=== PATIENT | male | born 1955 | race Caucasian/White ===

== ENCOUNTER → 2017-02-14 | Day surgery (SDC) | payer OTHER ==
[~2017-02-14] MED LIST: ACTOS30 MG PO; ASPIR-TRIN325 MG PO; PERCOCET; VASERETIC 10-251 TAB PO
--- NOTE | ~2017-02-14 | OR ---
Unit #: [id number] #: [id number] Patient: HELLEN MANZANARES [id number] [address] [place], [place] [address] [id number] MR#: [id number] NAME: HELLEN MANZANARES. ROOM: Date of Procedure: 02/14/2017 Admission Date: 02/14/2017 Surgeon: Cruz Ramey M.D. : 1955 Attending Physician: Cruz Ramey M.D. Primary Care Physician: Jayson Marley D.O. OPERATIVE REPORT PRIMARY CARE PHYSICIAN Jayson Marley D.O. PREOPERATIVE DIAGNOSES The patient has presented for surveillance colonoscopy. He has family history of colon cancer. In addition, he also has presence of blood in the stool as well as iron-deficiency anemia, anemia of chronic gastrointestinal blood loss, and needs an upper gastrointestinal endoscopy as well. PROCEDURES PERFORMED Push enteroscopy and biopsy as well as colonoscopy up to terminal ileum. POSTOPERATIVE DIAGNOSES For push enteroscopy: 1. The patient had mild prepyloric antral gastritis. 2. Mild focal patchy erosive duodenitis. 3. Rest of the examination up to proximal jejunum was normal. Biopsies were obtained from the deep descending duodenal folds to look for any evidence of partial villous atrophy or celiac disease. In addition, a biopsy was also obtained from the antrum for CLOtest. For colonoscopy: Mild sigmoid and descending colon diverticulosis. Otherwise, normal examination up to cecum and terminal ileum. The quality of the prep was excellent. RECOMMENDATIONS The patient will be followed up in the office in 3 to 4 months' time. He does not have any potential source of blood loss in the upper gastrointestinal tract or in the colonic colon. SEDATION MAC. DESCRIPTION OF PROCEDURE Following detailed explanation of the potential risks and complications of an upper endoscopy, push enteroscopy, and a colonoscopy, namely perforation, bleeding, and complications related to sedation, the patient was brought to GI lab and laid in the left lateral decubitus position. Lubricated tip of the Olympus video upper endoscope was passed through the bite block into the proximal esophagus under direct vision. The entire esophageal mucosa was examined and appeared normal. Z-line was nicely demarcated, there being no esophagitis or hiatus hernia. The scope was Unit #: [id number] #: [id number] Patient: HELLEN MANZANARES then advanced into the gastric cavity and the latter was insufflated. Mucosa of the fundus, body, and antrum was examined. The patient was noted to have mild prepyloric antral erythema indicating antral gastritis. Pylorus was intubated with visualization of the duodenal bulb. The latter was noted to have mild focal patchy erosive duodenitis. Second and third part of the duodenum was normal. Upon withdrawal and retroflexion, incisura, cardia, and greater curve was examined and no additional findings were noted. The scope was then withdrawn in the distal esophagus. The entire esophageal mucosa was examined all the way up to pharynx. No additional findings were noted. A pediatric colonoscope was used for push enteroscopy. At this time, the scope was advanced up to proximal jejunum. No additional abnormalities were noted. The patient did not have any angiodysplasia. We then obtained biopsies from the deep descending duodenal folds to look for any evidence of partial villous atrophy or celiac disease. Biopsies were also obtained for the antrum for CLOtest. The scope was then withdrawn. The examination table was then turned by 180 degrees and the patient positioned for a colonoscopy. A digital rectal examination was performed, which was normal. Lubricated tip of the Olympus video colonoscope was inserted through the anus and advanced under direct vision. The scope was advanced past rectosigmoid into descending colon. Multiple small diverticula were noted in this area. The scope tip was then navigated all the way up to cecum with visualization of the ileocecal valve and the appendiceal orifice. Preparation was excellent with good visualization and photodocumentation was obtained. Last several inches of the terminal ileum were also visualized after intubation of the ileocecal valve and appeared normal. Successive segments of the colonic mucosa were examined upon withdrawal and appeared unremarkable. There being no polyps, mass lesions, or AVMs. Other than the scant diverticula seen in the sigmoid and descending colon, no other abnormalities were noted. The patient did not have any hemorrhoids at the anal verge. The scope was then withdrawn and the patient returned to recovery area. He tolerated the procedure without any postprocedure complications. Dictated by... Nazia Machado TD: 02/15/2017 02:33 JOB #: [id number] CC: Jayson Marley D.O. OPERATIVE REPORT Page 1 of 1 X Cruz Ramey MD PROCEDURE OPERATIVE NOTE
== END | disposition home or self-care (01) ==
LOC: COPS 11:53
DX: K29.80 Duodenitis without bleeding (principal); K29.70 Gastritis, unspecified, without bleeding; K57.30 Diverticulosis of large intestine without perforation or abscess without bleeding; I10 Essential (primary) hypertension; E11.9 Type 2 diabetes mellitus without complications; E78.5 Hyperlipidemia, unspecified; Z87.442 Personal history of urinary calculi; Z79.82 Long term (current) use of aspirin; Z79.899 Other long term (current) drug therapy; Z98.890 Other specified postprocedural states
CPT/HCPCS: 82947; 87077; 88305; J2250